=== PATIENT | male | born 1985 | race American Indian/Alaskan Native ===

== ENCOUNTER 2018-12-24 20:28 | Inpatient (IN) | payer SELFPAY ==
[2018-12-24] MEDS ORDERED: NACL 0.9% 1000 ML 1,000 ML ONE (20:37)
[2018-12-24] MEDS ORDERED: NACL 0.9% 1000 ML 1,000 ML IV ONE ×3 (20:39→21:45)
--- NOTE | 2018-12-24 20:43 | Emergency Department Report ---
ED General Adult HPI - General Chief complaint: Weakness Stated complaint: CRAMPING Time Seen by Provider: 12/24/18 20:33 Source: EMS Mode of arrival: Stretcher Limitations: No Limitations - History of Present Illness Initial comments: 33-year-old male with no past medical history of asthma complaining of generalized body cramps. Patient was working outside in the heat all day. He states he had 2 beers, water, and power aid. He comes in complaining of moderate to severe cramps all over his whole-body that is worse in his legs. Initial blood pressure is systolic in the 70s. - Related Data Allergies Allergy/AdvReac Type Severity Reaction Status Date / Time No Known Allergies Allergy Unverified 12/24/18 20:48 ED Review of Systems ROS: Stated complaint: CRAMPING Other details as noted in HPI Comment: All other systems reviewed and negative ED Past Medical Hx - Past Medical History Previous Medical History?: No - Surgical History Past Surgical History?: No - Social History Smoking Status: Current Every Day Smoker Substance Use Type: Alcohol, Marijuana ED Physical Exam - General Limitations: No Limitations - Other Other exam information: General: No acute distress Eyes: Normal appearance, pupils equal reactive to light, extraocular movements intact ENT: Normal oropharynx Neck: Normal appearance, no C-spine tenderness, no meningismus Chest: Clear to auscultation bilaterally, no wheezes, rales, or crackles Cardiovascular: Regular rate and rhythm Abdomen: Soft, nondistended, nontender, no rebound or guarding, normal bowel sounds Back: Normal inspection, nontender Extremity: Normal inspection, no deformity, full range of motion Neuro: Alert and oriented 3, speech clear, no gross motor or sensory deficit Skin: No rash, once, or erythema ED Course Vital Signs 12/24/18 12/24/18 12/24/18 20:35 20:37 20:45 Temperature 97.6 F Pulse Rate 93 H Respiratory 16 Rate Blood Pressure 127/76 Blood Pressure 71/44 [Right] O2 Sat by Pulse 98 98 99 Oximetry 12/24/18 12/24/18 12/24/18 21:06 21:15 21:42 Temperature Pulse Rate 86 Respiratory 19 19 19 Rate Blood Pressure Blood Pressure 139/79 [Right] O2 Sat by Pulse 96 Oximetry 12/24/18 12/24/18 22:01 23:01 Temperature Pulse Rate 82 79 Respiratory 11 L 17 Rate Blood Pressure 103/52 124/70 Blood Pressure [Right] O2 Sat by Pulse 100 97 Oximetry - Reevaluation(s) Reevaluation #1: 12/24/18 22:35 pt produce urine at this time after 2 L NS Reevaluation #2: 12/24/18 23:45 ua shows possible uti, pt received zosyn. RN instructed to add GC/CHL culture to the urine sample. ED Medical Decision Making - Lab Data Result diagrams: 12/24/18 20:44 12/24/18 20:44 Lab Results 12/24/18 12/24/18 12/24/18 Range/Units 20:44 20:44 20:51 WBC 19.6 H (4.5-11.0) K/mm3 RBC 5.94 H (3.65-5.03) M/mm3 Hgb 19.5 H (11.8-15.2) gm/dl Hct 57.2 H (35.5-45.6) % MCV 96 H (84-94) fl MCH 33 H (28-32) pg MCHC 34 (32-34) % RDW 14.3 (13.2-15.2) % Plt Count 286 (140-440) K/mm3 Lymph % (Auto) 20.4 (13.4-35.0) % [place] % (Auto) 7.2 (0.0-7.3) % Eos % (Auto) 0.1 (0.0-4.3) % Baso % (Auto) 0.5 (0.0-1.8) % Lymph # 4.0 (1.2-5.4) K/mm3 [place] # 1.4 H (0.0-0.8) K/mm3 Eos # 0.0 (0.0-0.4) K/mm3 Baso # 0.1 (0.0-0.1) K/mm3 Seg Neutrophils % 71.8 H (40.0-70.0) % Seg Neutrophils # 14.1 H (1.8-7.7) K/mm3 POC ABG pH (7.35-7.45) POC ABG pCO2 (35-45) POC ABG pO2 (80-105) POC ABG HCO3 (22-26 mml/L) POC ABG Total CO2 (23-27mmol/L) POC ABG O2 Sat POC ABG Base Excess ((-2) - (+3)mmol/L) VBG pH (7.320-7.420) FiO2 % Sodium 136 L (137-145) mmol/L Potassium 3.0 L (3.6-5.0) mmol/L Chloride 89.6 L (98-107) mmol/L Carbon Dioxide 16 L (22-30) mmol/L Anion Gap 33 mmol/L BUN 21 H (9-20) mg/dL Creatinine 3.0 H (0.8-1.5) mg/dL Estimated GFR 25 ml/min BUN/Creatinine Ratio 7 % Glucose 142 H (75-100) mg/dL Osmolality Mosm/kg Lactic Acid (0.7-2.0) mmol/L Calcium 11.3 H (8.4-10.2) mg/dL Magnesium 3.10 H (1.7-2.3) mg/dL Total Bilirubin 0.60 (0.1-1.2) mg/dL AST 26 (5-40) units/L ALT 21 (7-56) units/L Alkaline Phosphatase 111 (35-129) units/L Total Creatine Kinase 499 H (55-170) units/L Total Protein 10.7 H (6.3-8.2) g/dL Albumin 5.5 H (3.9-5) g/dL Albumin/Globulin Ratio 1.1 % Plasma/Serum Alcohol (0-0.07) % 12/24/18 12/24/18 12/24/18 Range/Units 20:51 20:51 21:47 WBC (4.5-11.0) K/mm3 RBC (3.65-5.03) M/mm3 Hgb (11.8-15.2) gm/dl Hct (35.5-45.6) % MCV (84-94) fl MCH (28-32) pg MCHC (32-34) % RDW (13.2-15.2) % Plt Count (140-440) K/mm3 Lymph % (Auto) (13.4-35.0) % [place] % (Auto) (0.0-7.3) % Eos % (Auto) (0.0-4.3) % Baso % (Auto) (0.0-1.8) % Lymph # (1.2-5.4) K/mm3 [place] # (0.0-0.8) K/mm3 Eos # (0.0-0.4) K/mm3 Baso # (0.0-0.1) K/mm3 Seg Neutrophils % (40.0-70.0) % Seg Neutrophils # (1.8-7.7) K/mm3 POC ABG pH 7.297 L (7.35-7.45) POC ABG pCO2 44.3 (35-45) POC ABG pO2 71 L (80-105) POC ABG HCO3 21.6 (22-26 mml/L) POC ABG Total CO2 23 (23-27mmol/L) POC ABG O2 Sat 92 POC ABG Base Excess -5 ((-2) - (+3)mmol/L) VBG pH (7.320-7.420) FiO2 21 % Sodium (137-145) mmol/L Potassium (3.6-5.0) mmol/L Chloride (98-107) mmol/L Carbon Dioxide (22-30) mmol/L Anion Gap mmol/L BUN (9-20) mg/dL Creatinine (0.8-1.5) mg/dL Estimated GFR ml/min BUN/Creatinine Ratio % Glucose (75-100) mg/dL Osmolality 296 Mosm/kg Lactic Acid (0.7-2.0) mmol/L Calcium (8.4-10.2) mg/dL Magnesium (1.7-2.3) mg/dL Total Bilirubin (0.1-1.2) mg/dL AST (5-40) units/L ALT (7-56) units/L Alkaline Phosphatase (35-129) units/L Total Creatine Kinase (55-170) units/L Total Protein (6.3-8.2) g/dL Albumin (3.9-5) g/dL Albumin/Globulin Ratio % Plasma/Serum Alcohol < 0.01 (0-0.07) % 12/24/18 12/24/18 Range/Units 21:50 21:50 WBC (4.5-11.0) K/mm3 RBC (3.65-5.03) M/mm3 Hgb (11.8-15.2) gm/dl Hct (35.5-45.6) % MCV (84-94) fl MCH (28-32) pg MCHC (32-34) % RDW (13.2-15.2) % Plt Count (140-440) K/mm3 Lymph % (Auto) (13.4-35.0) % [place] % (Auto) (0.0-7.3) % Eos % (Auto) (0.0-4.3) % Baso % (Auto) (0.0-1.8) % Lymph # (1.2-5.4) K/mm3 [place] # (0.0-0.8) K/mm3 Eos # (0.0-0.4) K/mm3 Baso # (0.0-0.1) K/mm3 Seg Neutrophils % (40.0-70.0) % Seg Neutrophils # (1.8-7.7) K/mm3 POC ABG pH (7.35-7.45) POC ABG pCO2 (35-45) POC ABG pO2 (80-105) POC ABG HCO3 (22-26 mml/L) POC ABG Total CO2 (23-27mmol/L) POC ABG O2 Sat POC ABG Base Excess ((-2) - (+3)mmol/L) VBG pH 7.299 L (7.320-7.420) FiO2 % Sodium (137-145) mmol/L Potassium (3.6-5.0) mmol/L Chloride (98-107) mmol/L Carbon Dioxide (22-30) mmol/L Anion Gap mmol/L BUN (9-20) mg/dL Creatinine (0.8-1.5) mg/dL Estimated GFR ml/min BUN/Creatinine Ratio % Glucose (75-100) mg/dL Osmolality Mosm/kg Lactic Acid 3.60 H* (0.7-2.0) mmol/L Calcium (8.4-10.2) mg/dL Magnesium (1.7-2.3) mg/dL Total Bilirubin (0.1-1.2) mg/dL AST (5-40) units/L ALT (7-56) units/L Alkaline Phosphatase (35-129) units/L Total Creatine Kinase (55-170) units/L Total Protein (6.3-8.2) g/dL Albumin (3.9-5) g/dL Albumin/Globulin Ratio % Plasma/Serum Alcohol (0-0.07) % - EKG Data -: EKG Interpreted by Me EKG shows normal: sinus rhythm, ST-T waves (no stemio) Rate: normal - Radiology Data Radiology results: report reviewed pcxr: naf - Medical Decision Making Patient's hypotension responded quickly to IV fluids. After 1 L of normal saline he continued to have muscle spasms and cramps here for received Dilaudid 0.5 mg and Zofran with improvement. After 2 L of normal saline patient was able to produce urine and results are pending at disposition. Patient's leukocytosis and elevated hemoglobin, and elevated lactic acid likely related to heat exposure and dehydration however sepsis cannot be ruled out at this time therefore patient was empirically covered with Zosyn with blood culture and urine/urine culture results pending. Hospitalist informed for admission. - Differential Diagnosis dehydration, electrolyte adenopathy, heat cramps Critical Care Time: No Critical care attestation.: If time is entered above; I have spent that time in minutes in the direct care of this critically ill patient, excluding procedure time. ED Disposition Clinical Impression: Heat cramps, Acute renal failure, Elevated lactic acid level, Leukocytosis, Hypokalemia Disposition: -09 OP ADMIT IP TO THIS HOSP Is pt being admited?: Yes Condition: Stable Time of Disposition: 22:39 (Dr moore/hosp)
[2018-12-24 21:02] LABS: Basophils # (Auto) 0.1 K/mm3 (0.0-0.1); Basophils % (Auto) 0.5 % (0.0-1.8); Eosinophils % (Auto) 0.1 % (0.0-4.3); Hematocrit 57.2 % (35.5-45.6); Hemoglobin 19.5 gm/dl (11.8-15.2); Lymphocytes % (Auto) 20.4 % (13.4-35.0); Mean Corpuscular HGB Conc 34 % (32-34); Mean Corpuscular Volume 96 fl (84-94); Monocytes # (Auto) 1.4 K/mm3 (0.0-0.8); Monocytes % (Auto) 7.2 % (0.0-7.3); Platelet Count 286 K/mm3 (140-440); Red Blood Count 5.94 M/mm3 (3.65-5.03); Red Cell Distribution Width 14.3 % (13.2-15.2)
[2018-12-24] MEDS ORDERED: ZOFRAN IV ONE (21:09)
[2018-12-24] MEDS ORDERED: DILAUDID IV ONE (21:09)
[2018-12-24] MEDS ORDERED: DILAUDID ONE (21:12)
[2018-12-24] MEDS ORDERED: ZOFRAN ONE (21:13)
[2018-12-24 21:24] LABS: Albumin 5.5 g/dL (3.9-5); Calcium 11.3 mg/dL (8.4-10.2)
[2018-12-24] MEDS ORDERED: K-DUR PO ONE (21:34)
--- NOTE | 2018-12-24 22:13 | XRay Report ---
CHEST 1 VIEW INDICATION / CLINICAL INFORMATION: leukocytosis. Dyspnea. COMPARISON: None available. FINDINGS: SUPPORT DEVICES: None. HEART / MEDIASTINUM: No significant abnormality. LUNGS / PLEURA: No significant pulmonary or pleural abnormality. No pneumothorax. ADDITIONAL FINDINGS: No significant additional findings. IMPRESSION: 1. No acute findings. Signer Name: Chandan Hein MD Signed: 12/24/2018 10:09 PM Workstation Name: [id number]
[2018-12-24] MEDS ORDERED: ZOSYN/NS 4.5GM/100ML 4.5 GM/100 ML VIAL IV ONE (22:19)
[2018-12-24 23:01] LABS: Bacteria,Urine 1+ /HPF (Negative); Bilirubin,Urine NEG (Negative); Blood,Urine MOD (Negative); Color,Urine Yellow (Yellow); Hyaline Casts,Urine 2 /LPF; Mucus,Urine FEW /HPF; Osmolality,Urine 304 Mosm/kg; Urobilinogen,Urine < 2.0 mg/dL (<2.0)
[2018-12-24 23:10] LABS: Amphetamine Screen,Urine PRESUMPTIVE NEGATIVE; Benzodiazepines Screen,Urine PRESUMPTIVE NEGATIVE; Chloride, Urine 14.1 mmolL (110-250); Cocaine Screen,Urine PRESUMPTIVE NEGATIVE; Methadone Screen,Urine PRESUMPTIVE NEGATIVE; Opiate Screen,Urine PRESUMPTIVE NEGATIVE
--- NOTE | 2018-12-24 23:30 | History and Physical Report ---
History of Present Illness Chief complaint: Muscle pains History of present illness: 33-year-old man with a history of mild intermittent asthma who presented to the hospital generalized body cramps. He states that he was working outside in the heat all day. He admits to having 2 beers some water and power aid. Is complaining of moderate to severe cramps all over his body, it is worse in the legs. On presentation to the ER his blood pressure is in the 70 systolic. The patient works in [employer] and [employer] and states that he was trying to "get his money up" and asked why he kept working despite the heat and muscle cramps. States that this hospital stay is "messing with my money". Past medical history; mild intermittent asthma Past surgical history, denies surgeries Social history current every day smoker, admits to alcohol and marijuana use Family history; noncontributory, denies history of heart disease Medications and Allergies Allergies Allergy/AdvReac Type Severity Reaction Status Date / Time No Known Allergies Allergy Unverified 12/24/18 20:48 Home Medications Medication Instructions Recorded Confirmed Last Taken Type No Known Home Medications [No 12/24/18 12/24/18 Unknown History Reported Home Medications] Review of Systems All systems: negative Constitutional: no anorexia Ears, nose, mouth and throat: no ear pain Cardiovascular: no chest pain Respiratory: no cough Gastrointestinal: no nausea Genitourinary Male: no dysuria Rectal: no pain Musculoskeletal: muscle cramps Integumentary: no rash Neurological: no head injury Psychiatric: no anxiety Endocrine: no cold intolerance Hematologic/Lymphatic: no easy bruising Allergic/Immunologic: no urticaria Exam - Constitutional Vitals: Temp Pulse Resp BP Pulse Ox 97.6 F 82 11 L 103/52 100 12/24/18 20:37 12/24/18 22:01 12/24/18 22:01 12/24/18 22:01 12/24/18 22:01 General appearance: Present: mild distress, well-nourished - EENT Eyes: Present: PERRL ENT: hearing intact, clear oral mucosa - Neck Neck: Present: supple, normal ROM - Respiratory Respiratory effort: normal Respiratory: bilateral: CTA - Cardiovascular Heart Sounds: Present: S1 & S2. Absent: rub, click - Extremities Extremities: pulses symmetrical, No edema Peripheral Pulses: within normal limits - Abdominal General gastrointestinal: Present: soft, non-tender, non-distended, normal bowel sounds Male genitourinary: Present: normal - Integumentary Integumentary: Present: clear, warm, dry - Musculoskeletal Musculoskeletal: strength equal bilaterally, other (decreased range of motion due to muscle stiffness/cramps) - Psychiatric Psychiatric: appropriate mood/affect, intact judgment & insight - Neurologic Neurologic: CNII-XII intact, moves all extremities Results - Labs CBC & Chem 7: 12/25/18 04:24 12/24/18 20:44 Labs: Laboratory Last Values WBC 19.6 K/mm3 (4.5-11.0) H 12/24/18 20:44 RBC 5.94 M/mm3 (3.65-5.03) H 12/24/18 20:44 Hgb 19.5 gm/dl (11.8-15.2) H 12/24/18 20:44 Hct 57.2 % (35.5-45.6) H 12/24/18 20:44 MCV 96 fl (84-94) H 12/24/18 20:44 MCH 33 pg (28-32) H 12/24/18 20:44 MCHC 34 % (32-34) 12/24/18 20:44 RDW 14.3 % (13.2-15.2) 12/24/18 20:44 Plt Count 286 K/mm3 (140-440) 12/24/18 20:44 Lymph % (Auto) 20.4 % (13.4-35.0) 12/24/18 20:44 [place] % (Auto) 7.2 % (0.0-7.3) 12/24/18 20:44 Eos % (Auto) 0.1 % (0.0-4.3) 12/24/18 20:44 Baso % (Auto) 0.5 % (0.0-1.8) 12/24/18 20:44 Lymph # 4.0 K/mm3 (1.2-5.4) 12/24/18 20:44 [place] # 1.4 K/mm3 (0.0-0.8) H 12/24/18 20:44 Eos # 0.0 K/mm3 (0.0-0.4) 12/24/18 20:44 Baso # 0.1 K/mm3 (0.0-0.1) 12/24/18 20:44 Seg Neutrophils % 71.8 % (40.0-70.0) H 12/24/18 20:44 Seg Neutrophils # 14.1 K/mm3 (1.8-7.7) H 12/24/18 20:44 POC ABG pH 7.297 (7.35-7.45) L 12/24/18 21:47 POC ABG pCO2 44.3 (35-45) 12/24/18 21:47 POC ABG pO2 71 (80-105) L 12/24/18 21:47 POC ABG HCO3 21.6 (22-26 mml/L) 12/24/18 21:47 POC ABG Total CO2 23 (23-27mmol/L) 12/24/18 21:47 POC ABG O2 Sat 92 12/24/18 21:47 POC ABG Base Excess -5 ((-2) - (+3)mmol/L) 12/24/18 21:47 VBG pH 7.299 (7.320-7.420) L 12/24/18 21:50 21 % 12/24/18 21:47 Sodium 136 mmol/L (137-145) L 12/24/18 20:44 Potassium 3.0 mmol/L (3.6-5.0) L 12/24/18 20:44 Chloride 89.6 mmol/L (98-107) L 12/24/18 20:44 Carbon Dioxide 16 mmol/L (22-30) L 12/24/18 20:44 33 mmol/L 12/24/18 20:44 BUN 21 mg/dL (9-20) H 12/24/18 20:44 3.0 mg/dL (0.8-1.5) H 12/24/18 20:44 Estimated GFR 25 ml/min 12/24/18 20:44 7 % 12/24/18 20:44 Glucose 142 mg/dL (75-100) H 12/24/18 20:44 296 Mosm/kg 12/24/18 20:51 Lactic Acid 3.60 mmol/L (0.7-2.0) H* 12/24/18 21:50 Calcium 11.3 mg/dL (8.4-10.2) H 12/24/18 20:44 Magnesium 3.10 mg/dL (1.7-2.3) H 12/24/18 20:44 0.60 mg/dL (0.1-1.2) 12/24/18 20:44 AST 26 units/L (5-40) 12/24/18 20:44 ALT 21 units/L (7-56) 12/24/18 20:44 111 units/L (35-129) 12/24/18 20:44 499 units/L (55-170) H 12/24/18 20:51 10.7 g/dL (6.3-8.2) H 12/24/18 20:44 5.5 g/dL (3.9-5) H 12/24/18 20:44 1.1 % 12/24/18 20:44 Yellow (Yellow) 12/24/18 22:37 Slightly-cloudy (Clear) 12/24/18 22:37 6.0 (5.0-7.0) 12/24/18 22:37 Ur Specific [place] 1.010 (1.003-1.030) 12/24/18 22:37 30 mg/dl mg/dL (Negative) 12/24/18 22:37 Neg mg/dL (Negative) 12/24/18 22:37 Tr mg/dL (Negative) 12/24/18 22:37 Mod (Negative) 12/24/18 22:37 Neg (Negative) 12/24/18 22:37 Neg (Negative) 12/24/18 22:37 < 2.0 mg/dL (<2.0) 12/24/18 22:37 Ur Leukocyte Esterase Mod (Negative) 12/24/18 22:37 29.0 /HPF (0.0-6.0) H 12/24/18 22:37 3.0 /HPF (0.0-6.0) 12/24/18 22:37 U Epithel Cells (Auto) 1.0 /HPF (0-13.0) 12/24/18 22:37 1+ /HPF (Negative) 12/24/18 22:37 Hyaline Casts 2 /LPF 12/24/18 22:37 Few /HPF 12/24/18 22:37 304 Mosm/kg 12/24/18 22:37 43 mmol/L 12/24/18 22:37 14.1 mmolL (110-250) L 12/24/18 22:37 Presumptive negative 12/24/18 22:37 Presumptive negative 12/24/18 22:37 Ur Barbiturates Screen Presumptive negative 12/24/18 22:37 Ur Phencyclidine Scrn Presumptive negative 12/24/18 22:37 Ur Amphetamines Screen Presumptive negative 12/24/18 22:37 U Benzodiazepines Scrn Presumptive negative 12/24/18 22:37 Presumptive negative 12/24/18 22:37 Disclamer 12/24/18 22:37 Plasma/Serum Alcohol < 0.01 % (0-0.07) 12/24/18 20:51 Assessment and Plan Assessment and plan: 33-year-old man who presented to the hospital with generalized body cramps after working in the heat outside all day Labs reviewed, creatinine 3, CK 500, UDS positive for marijuana Heat poisoning/rhabdomyolysis, exercise induced muscle cramps IV fluids, keep patient cool Lactic acidosis likely due to heat cramps, highly doubt sepsis Severe dehydration/acute kidney injury/vasomotor nephropathy IV fluids Hypotension was due to dehydration, has improved with IV fluids Hypokalemia Replete and recheck Of note calcium and magnesium are elevated, however this is likely also due to hemoconcentration and should resolve with hydration UTI? Possible UTI days pyuria on his UA, however this may be sediments given acute kidney injury Empiric Antibiotics, follow-up urine culture Leukocytosis and polycythemia Suspect hemoconcentration and hydrate and recheck CBC in a.m. Tobacco abuse/marijuana abuse Smoking cessation counseling performed for 10 minutes, nicotine patches when necessary Preventative health counseling performed for 17 minutes DVT prophylaxis; early ambulation
[2018-12-24] MEDS ORDERED: NORCO 5/325 PO PRN (23:35)
[2018-12-24] MEDS ORDERED: SODIUM CHLORIDE FLUSH SYRINGE 10 ML IV PRN (23:35)
[2018-12-24] MEDS ORDERED: DILAUDID IV PRN (23:35)
[2018-12-24] MEDS ORDERED: TYLENOL PO PRN (23:35)
[2018-12-24] MEDS ORDERED: ZOFRAN IV PRN (23:35)
[2018-12-24 23:42] LABS: Cannabinoid Screen,Urine PRESUMPTIVE POSITIVE
[2018-12-25] MEDS ORDERED: KCL 40 MEQ in NACL 0.45% 500 ML IV SCH (00:30)
[2018-12-25] MEDS ORDERED: NACL 0.45% 1000 ML 1,000 ML IV ONE (00:39)
[2018-12-25] MEDS: NACL 0.45% 1000 ML 1,000 ML IV SCH ×5 (00:54→22:02)
[2018-12-25 05:00] LABS: Basophils # (Auto) 0.1 K/mm3 (0.0-0.1); Basophils % (Auto) 0.5 % (0.0-1.8); Eosinophils % (Auto) 0.2 % (0.0-4.3); Hematocrit 46.6 % (35.5-45.6); Hemoglobin 15.8 gm/dl (11.8-15.2); Lymphocytes % (Auto) 12.6 % (13.4-35.0); Mean Corpuscular HGB Conc 34 % (32-34); Mean Corpuscular Volume 96 fl (84-94); Monocytes # (Auto) 1.5 K/mm3 (0.0-0.8); Monocytes % (Auto) 9.1 % (0.0-7.3); Platelet Count 200 K/mm3 (140-440); Red Blood Count 4.89 M/mm3 (3.65-5.03); Red Cell Distribution Width 14.3 % (13.2-15.2)
[2018-12-25 05:17] LABS: Calcium 8.8 mg/dL (8.4-10.2)
[2018-12-25] MEDS: ROCEPHIN/NS 1 GM/50 ML 1 GM/50 ML BAG IV SCH (09:20)
[2018-12-25] MEDS: HABITROL TD SCH (09:20)
[2018-12-25] MEDS: SODIUM CHLORIDE FLUSH SYRINGE 10 ML IV SCH ×2 (09:21→22:02)
--- NOTE | 2018-12-25 12:34 | Progress Note ---
Assessment and Plan /heat Stroke/Rhabdomyolysis, exercise induced muscle cramps - cont IV fluids, monitor body temp, monitor cpk /Lactic acidosis likely due to dehydration, highly doubt sepsis /Severe dehydration/acute kidney injury/vasomotor nephropathy cont IV fluids /Hypotension was due to dehydration, has improved with IV fluids /Hypokalemia Replete and recheck Of note calcium and magnesium are elevated, however this is likely also due to hemoconcentration and should resolve with hydration /UTI? Possible UTI days pyuria on his UA, however this may be sediments given acute kidney injury Empiric Antibiotics, follow-up urine culture /Leukocytosis and polycythemia Suspect hemoconcentration and dehydration /Tobacco abuse/marijuana abuse Smoking cessation counseling performed for 10 minutes, nicotine patches when necessary Preventative health counseling performed for 17 minutes DVT prophylaxis; early ambulation Brief history: 33-year-old man who presented to the hospital with generalized body cramps after working in the heat outside all day Labs reviewed, creatinine 3, CK 500, UDS positive for marijuana Subjective Date of service: 12/25/18 Interval history: patient seen and examined denies any bodyache no chest pain or SOB, feeling better, tolerating diet Objective - Constitutional Vitals: Vital Signs - 12hr 12/25/18 12/25/18 12/25/18 01:00 01:38 05:31 Temperature 98.9 F 99.6 F Pulse Rate 78 72 76 Pulse Rate [ From Monitor] Respiratory 13 18 18 Rate Blood Pressure 128/66 135/65 112/54 O2 Sat by Pulse 99 97 96 Oximetry 12/25/18 09:29 Temperature Pulse Rate Pulse Rate [ 67 From Monitor] Respiratory Rate Blood Pressure O2 Sat by Pulse Oximetry General appearance: Present: no acute distress, well-nourished - EENT Eyes: PERRL, EOM intact ENT: hearing intact, clear oral mucosa Ears: bilateral: normal - Neck Neck: supple, normal ROM - Respiratory Respiratory effort: normal Respiratory: bilateral: CTA - Cardiovascular Rhythm: regular Heart Sounds: Present: S1 & S2. Absent: gallop, rub Extremities: pulses intact, No edema, normal color, Full ROM - Gastrointestinal General gastrointestinal: Present: soft, non-tender, non-distended, normal bowel sounds - Integumentary Integumentary: clear, warm, dry - Musculoskeletal Musculoskeletal: 1, strength equal bilaterally - Neurologic Neurologic: moves all extremities - Psychiatric Psychiatric: memory intact, appropriate mood/affect, intact judgment & insight - Labs CBC & Chem 7: 12/26/18 04:56 12/26/18 04:56 Labs: Abnormal lab results 12/24/18 12/24/18 12/24/18 Range/Units 20:44 20:44 20:51 WBC 19.6 H (4.5-11.0) K/mm3 RBC 5.94 H (3.65-5.03) M/mm3 Hgb 19.5 H (11.8-15.2) gm/dl Hct 57.2 H (35.5-45.6) % MCV 96 H (84-94) fl MCH 33 H (28-32) pg Lymph % (Auto) (13.4-35.0) % [place] % (Auto) (0.0-7.3) % [place] # 1.4 H (0.0-0.8) K/mm3 Seg Neutrophils % 71.8 H (40.0-70.0) % Seg Neutrophils # 14.1 H (1.8-7.7) K/mm3 POC ABG pH (7.35-7.45) POC ABG pO2 (80-105) VBG pH (7.320-7.420) Sodium 136 L (137-145) mmol/L Potassium 3.0 L (3.6-5.0) mmol/L Chloride 89.6 L (98-107) mmol/L Carbon Dioxide 16 L (22-30) mmol/L BUN 21 H (9-20) mg/dL Creatinine 3.0 H (0.8-1.5) mg/dL Glucose 142 H (75-100) mg/dL Lactic Acid (0.7-2.0) mmol/L Calcium 11.3 H (8.4-10.2) mg/dL Magnesium 3.10 H (1.7-2.3) mg/dL Total Creatine Kinase 499 H (55-170) units/L Total Protein 10.7 H (6.3-8.2) g/dL Albumin 5.5 H (3.9-5) g/dL Urine WBC (Auto) (0.0-6.0) /HPF Urine Chloride (110-250) mmolL 12/24/18 12/24/18 12/24/18 Range/Units 21:47 21:50 21:50 WBC (4.5-11.0) K/mm3 RBC (3.65-5.03) M/mm3 Hgb (11.8-15.2) gm/dl Hct (35.5-45.6) % MCV (84-94) fl MCH (28-32) pg Lymph % (Auto) (13.4-35.0) % [place] % (Auto) (0.0-7.3) % [place] # (0.0-0.8) K/mm3 Seg Neutrophils % (40.0-70.0) % Seg Neutrophils # (1.8-7.7) K/mm3 POC ABG pH 7.297 L (7.35-7.45) POC ABG pO2 71 L (80-105) VBG pH 7.299 L (7.320-7.420) Sodium (137-145) mmol/L Potassium (3.6-5.0) mmol/L Chloride (98-107) mmol/L Carbon Dioxide (22-30) mmol/L BUN (9-20) mg/dL Creatinine (0.8-1.5) mg/dL Glucose (75-100) mg/dL Lactic Acid 3.60 H* (0.7-2.0) mmol/L Calcium (8.4-10.2) mg/dL Magnesium (1.7-2.3) mg/dL Total Creatine Kinase (55-170) units/L Total Protein (6.3-8.2) g/dL Albumin (3.9-5) g/dL Urine WBC (Auto) (0.0-6.0) /HPF Urine Chloride (110-250) mmolL 12/24/18 12/24/18 12/24/18 Range/Units 22:37 22:37 22:38 WBC (4.5-11.0) K/mm3 RBC (3.65-5.03) M/mm3 Hgb (11.8-15.2) gm/dl Hct (35.5-45.6) % MCV (84-94) fl MCH (28-32) pg Lymph % (Auto) (13.4-35.0) % [place] % (Auto) (0.0-7.3) % [place] # (0.0-0.8) K/mm3 Seg Neutrophils % (40.0-70.0) % Seg Neutrophils # (1.8-7.7) K/mm3 POC ABG pH (7.35-7.45) POC ABG pO2 (80-105) VBG pH (7.320-7.420) Sodium (137-145) mmol/L Potassium (3.6-5.0) mmol/L Chloride (98-107) mmol/L Carbon Dioxide (22-30) mmol/L BUN (9-20) mg/dL Creatinine (0.8-1.5) mg/dL Glucose (75-100) mg/dL Lactic Acid 2.30 H* (0.7-2.0) mmol/L Calcium (8.4-10.2) mg/dL Magnesium (1.7-2.3) mg/dL Total Creatine Kinase (55-170) units/L Total Protein (6.3-8.2) g/dL Albumin (3.9-5) g/dL Urine WBC (Auto) 29.0 H (0.0-6.0) /HPF Urine Chloride 14.1 L (110-250) mmolL 12/25/18 12/25/18 12/25/18 Range/Units 04:24 04:24 10:09 WBC 16.1 H (4.5-11.0) K/mm3 RBC (3.65-5.03) M/mm3 Hgb 15.8 H D (11.8-15.2) gm/dl Hct 46.6 H D (35.5-45.6) % MCV 96 H (84-94) fl MCH (28-32) pg Lymph % (Auto) 12.6 L (13.4-35.0) % [place] % (Auto) 9.1 H (0.0-7.3) % [place] # 1.5 H (0.0-0.8) K/mm3 Seg Neutrophils % 77.6 H (40.0-70.0) % Seg Neutrophils # 12.5 H (1.8-7.7) K/mm3 POC ABG pH (7.35-7.45) POC ABG pO2 (80-105) VBG pH (7.320-7.420) Sodium (137-145) mmol/L Potassium (3.6-5.0) mmol/L Chloride (98-107) mmol/L Carbon Dioxide (22-30) mmol/L BUN (9-20) mg/dL Creatinine 1.8 H (0.8-1.5) mg/dL Glucose (75-100) mg/dL Lactic Acid (0.7-2.0) mmol/L Calcium (8.4-10.2) mg/dL Magnesium (1.7-2.3) mg/dL Total Creatine Kinase 1434 H (55-170) units/L Total Protein (6.3-8.2) g/dL Albumin (3.9-5) g/dL Urine WBC (Auto) (0.0-6.0) /HPF Urine Chloride (110-250) mmolL - Imaging and cardiology Chest x-ray: report reviewed
--- NOTE | 2018-12-25 14:03 | Consultation ---
History of Present Illness - Reason for Consult Consult date: 12/25/18 acute renal failure - History of Present Illness Mr. Sharpe is a pleasant 33yo gentleman who presented to the ED with severe muscle cramps. 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 He reports that he drinks water and Power[employer] while working. However, he noticed urine was tea colored upon return from work. In the ED, patient was hypotensive. CK was elevated. He has been admitted for further management. Presently, he states that he is feeling better. Urine is clear. Past History Past Medical History: No medical history Past Surgical History: No surgical history Social history: no significant social history Family history: no significant family history Medications and Allergies Allergies Allergy/AdvReac Type Severity Reaction Status Date / Time No Known Allergies Allergy Unverified 12/24/18 20:48 Home Medications Medication Instructions Recorded Confirmed Last Taken Type No Known Home Medications [No 12/24/18 12/24/18 Unknown History Reported Home Medications] Active Meds: Active Medications Acetaminophen (Tylenol) 650 mg PO Q4H PRN PRN Reason: Pain MILD(1-3)/Fever >100.5/CANO Acetaminophen/Hydrocodone Bitart ([place] 5/325) 2 each PO Q6H PRN PRN Reason: Pain, Moderate (4-6) Hydromorphone HCl (Dilaudid) 0.5 mg IV Q3H PRN PRN Reason: Pain, Moderate (4-6) Sodium Chloride (Nacl 0.45% 1000 Ml) 1,000 mls @ 250 mls/hr IV DIRECT [facility] Last Admin: 12/25/18 09:20 Dose: 250 mls/hr Documented by: Ceftriaxone Sodium (Rocephin/Ns 1 Gm/50 Ml) 1 gm in 50 mls @ 100 mls/hr IV Q24HR ANA; Protocol Last Admin: 12/25/18 09:20 Dose: 100 mls/hr Documented by: Nicotine (Habitrol) 14 mg TD QDAY [facility] Last Admin: 12/25/18 09:20 Dose: 14 mg Documented by: Ondansetron HCl (Zofran) 4 mg IV Q8H PRN PRN Reason: Nausea And Vomiting Sodium Chloride (Sodium Chloride Flush Syringe 10 Ml) 10 ml IV BID [facility] Last Admin: 12/25/18 09:21 Dose: 10 ml Documented by: Sodium Chloride (Sodium Chloride Flush Syringe 10 Ml) 10 ml IV PRN PRN PRN Reason: LINE FLUSH Review of Systems All systems: negative Exam - Vital Signs Vital signs: Vital Signs Pulse Ox 98 12/24/18 20:35 Results - Lab Results 12/26/18 04:56 12/26/18 04:56 Most recent lab results Calcium 8.8 mg/dL (8.4-10.2) D 12/25/18 04:24 Magnesium 3.10 mg/dL (1.7-2.3) H 12/24/18 20:44 43 mmol/L 12/24/18 22:37 Assessment and Plan Impression: * Acute kidney injury secondary to volume depletion * Rhabdomyolysis * Hypokalemia * Metabolic acidosis Plan: * Continue IVF for hydration * Monitor SCr and CK * Replete lytes prn * Encouraged po hydration * Avoid potential nephrotoxins * Strict I/O * AM labs
[2018-12-26 06:01] LABS: Basophils % (Auto) 0.5 % (0.0-1.8); Eosinophils # (Auto) 0.1 K/mm3 (0.0-0.4); Eosinophils % (Auto) 1.3 % (0.0-4.3); Hematocrit 47.5 % (35.5-45.6); Hemoglobin 16.1 gm/dl (11.8-15.2); Lymphocytes # (Auto) 2.6 K/mm3 (1.2-5.4); Lymphocytes % (Auto) 29.6 % (13.4-35.0); Mean Corpuscular HGB Conc 34 % (32-34); Mean Corpuscular Volume 97 fl (84-94); Monocytes # (Auto) 0.8 K/mm3 (0.0-0.8); Monocytes % (Auto) 8.7 % (0.0-7.3); Platelet Count 189 K/mm3 (140-440); Red Blood Count 4.88 M/mm3 (3.65-5.03); Red Cell Distribution Width 14.5 % (13.2-15.2)
[2018-12-26 06:21] LABS: BUN/Creatinine Ratio 8; Blood Urea Nitrogen 9 mg/dL (9-20); Calcium 8.6 mg/dL (8.4-10.2); Hemolysis Index 2
[2018-12-26] MEDS: NACL 0.45% 1000 ML 1,000 ML IV SCH (08:23)
[2018-12-26] MEDS: SODIUM CHLORIDE FLUSH SYRINGE 10 ML IV SCH (09:53)
[2018-12-26] MEDS: ROCEPHIN/NS 1 GM/50 ML 1 GM/50 ML BAG IV SCH (09:53)
[2018-12-26] MEDS: HABITROL TD SCH (10:00)
--- NOTE | 2018-12-26 10:57 | Discharge Summary ---
Providers - Providers Date of Admission: 12/24/18 23:35 Date of discharge: 12/26/18 Attending physician: COLBY ESCOBAR 12/24/18 22:27 Consult to Physician [CONS] Urgent Comment: Consulting Provider: AP MCCONNELL Physician Instructions: Reason For Exam: arf, muscle spams [facility] Hospitalization Condition: Stable Pertinent studies: CXR : 1. No acute findings. Hospital course: 33-year-old man who presented to the hospital with generalized body cramps after working in the heat outside all day. Labs reviewed, creatinine 3, CK 500, UDS positive for marijuana, admitted for further evaluation and management. Discharge diagnosis and management: /heat Stroke/Rhabdomyolysis, exercise induced muscle cramps - Manged with IV fluids, monitored body temp, monitored cpk /Lactic acidosis likely due to dehydration, highly doubt sepsis /Severe dehydration/acute kidney injury/vasomotor nephropathy Mx with IV fluids /Hypotension was due to dehydration, has improved with IV fluids /Electrolytes abnormalities Hypokalemia- Repleted Hypercalcemia and hypermagnesemia - however this is likely also due to hemoconcentration and resolve with hydration /UTI? ruled out Suspected Possible UTI with pyuria on his UA, however this may be sediments given acute kidney injury Teated with Empiric Antibiotics initially then Urine cx was negative - no need for abx /Leukocytosis and polycythemia Suspect hemoconcentration and dehydration - not for sepsis /Tobacco abuse/marijuana abuse Smoking cessation counseling performed for 10 minutes, nicotine patches when necessary Preventative health counseling performed for 17 minutes DVT prophylaxis; early ambulation Disposition: home with self care Physical exam: General appearance: Present: no acute distress, well-nourished - EENT Eyes: PERRL, EOM intact ENT: hearing intact, clear oral mucosa Ears: bilateral: normal - Neck Neck: supple, normal ROM - Respiratory Respiratory effort: normal Respiratory: bilateral: CTA - Cardiovascular Rhythm: regular Heart Sounds: Present: S1 & S2. Absent: gallop, rub Extremities: pulses intact, No edema, normal color, Full ROM - Gastrointestinal General gastrointestinal: Present: soft, non-tender, non-distended, normal bowel sounds - Integumentary Integumentary: clear, warm, dry - Musculoskeletal Musculoskeletal: 1, strength equal bilaterally - Neurologic Neurologic: moves all extremities - Psychiatric Psychiatric: memory intact, appropriate mood/affect, intact judgment & insight Disposition: DC-01 TO HOME OR SELFCARE Time spent for discharge: 34 minutes Core Measure Documentation - Palliative Care Palliative Care/ Comfort Measures: Not Applicable - Core Measures Any of the following diagnoses?: none Exam - Constitutional Vitals: Temp Pulse Resp BP Pulse Ox 98.0 F 60 16 95/49 98 12/26/18 05:40 12/26/18 05:40 12/26/18 05:40 12/26/18 05:40 12/26/18 05:40 Plan Activity: advance as tolerated Weight Bearing Status: Weight Bear as Tolerated Diet: regular Follow up with: SAMANTA POLLACK MD [Primary Care Provider] - 7 Days
[2018-12-26 12:52] VITALS: BP 109/49
== END 2018-12-26 13:42 | disposition home or self-care (01) | DRG 922 ==
LOC: ED 20:28 → 3A 23:35
PROVIDERS: ADMIT Internal Medicine; ATTEND Internal Medicine
PROC: 4A033R1 Measurement of Arterial Saturation, Peripheral, Percutaneous Approach (ICD-10-PCS; principal; 2018-12-24)
DX: T67.0XXA Heatstroke and sunstroke, initial encounter (principal); N17.0 Acute kidney failure with tubular necrosis; M62.82 Rhabdomyolysis; X58.XXXA Exposure to other specified factors, initial encounter; Y93.89 Activity, other specified; Y92.89 Other specified places as the place of occurrence of the external cause; Y99.8 Other external cause status; J45.909 Unspecified asthma, uncomplicated; F17.200 Nicotine dependence, unspecified, uncomplicated; E87.6 Hypokalemia; E86.0 Dehydration; I95.9 Hypotension, unspecified; D75.1 Secondary polycythemia; F12.10 Cannabis abuse, uncomplicated; Z71.6 Tobacco abuse counseling; E83.41 Hypermagnesemia; E83.52 Hypercalcemia
CPT/HCPCS: 36415; 71045; 80048; 80053; 80307; 80320; 81001; 82140; 82436; 82550; 82803; 82805; 83735; 83930; 83935; 84300; 85025; 87040; 87086; 87591; 93005; 93010; 99406; G0378; G0480; J0696; J1170; J2405; J2543; J3480; J7030